=== PATIENT | male | born 1970 | race African-American/Black ===

== ENCOUNTER 2024-01-27 12:28 | Emergency (ER) | payer SELFPAY ==
[~2024-01-27] VITALS: Ht 180.3 cm; Wt 73.0 kg
[2024-01-27 12:40] VITALS: O2SAT 98
[2024-01-27] MEDS: METHOCARBAMOL 500MG TABLET PO ONE (13:30)
[2024-01-27] MEDS: KETOROLAC 30MG/ML VIAL IM ONE (13:30)
[2024-01-27] MEDS ORDERED: IBUP-2029 MT (15:06)
[2024-01-27] MEDS ORDERED: METH-653 MT (15:06)
[2024-01-27 15:39] VITALS: BP 123/64; PULSE 94; RESP 17; TEMP 97.3
== END 2024-01-27 15:48 | disposition home or self-care (01) ==
LOC: ER 12:28
DX: M54.30 Sciatica, unspecified side (principal)
CPT/HCPCS: 96372; 99283; J1885; Z7610